=== PATIENT | male | born 1935 | race Caucasian/White ===

== ENCOUNTER → 2016-06-21 | Outpatient (CLI) | payer MEDICARE ==
[~2016-06-21] VITALS: Ht 177.8 cm; Wt 64.4 kg
[~2016-06-21] MED LIST: AMLO10TA2 PO; CHLO25TA PO; FLOM5CAP PO; LIDOCAINE 2% INJ 100 MG/5 ML SDV (FOR ANES.) As Ordered ONE; LISI10TA4 PO; METO100T PO; METO50TA2 PO; NS 1,000 ML IV SCH; PROPOFOL 200 MG/20 ML VIAL As Ordered ONE; WARF-23 PO; ePHEDrine SULFATE 25 MG/5 ML(5MG/ML) SYRINGE As Ordered ONE
--- NOTE | 2016-06-21 13:54 | ROOR ---
Patient Name: Greg Baum Procedure Date: 06/21/2016 12:58 PM Date of : 1935 Age: 80 Room: [facility] Gender: Male Note Status: Finalized Procedure: Colonoscopy Indications: High risk colon cancer surveillance: Personal history of colonic polyps Providers: Elliot Andrade Jr, MD Referring MD: Claudia Warner DO Requesting Provider: Medicines: Propofol per Anesthesia Complications: No immediate complications. Procedure: Pre-Anesthesia Assessment: - Prior to the procedure, a History and Physical was performed, and patient medications and allergies were reviewed. The patient is competent. The risks and benefits of the procedure and the sedation options and risks were discussed with the patient. All questions were answered and informed consent was obtained. Patient identification and proposed procedure were verified by the physician and the nurse in the pre-procedure area and in the procedure room. Mental Status Examination: alert and oriented. Airway Examination: normal oropharyngeal airway and neck mobility. Respiratory Examination: clear to auscultation. CV Examination: normal. ASA Grade Assessment: II - A patient with mild systemic disease. After reviewing the risks and benefits, the patient was deemed in satisfactory condition to undergo the procedure. The anesthesia plan was to use moderate sedation / analgesia (conscious sedation). Immediately prior to administration of medications, the patient was re-assessed for adequacy to receive sedatives. The heart rate, respiratory rate, oxygen saturations, blood pressure, adequacy of pulmonary ventilation, and response to care were monitored throughout the procedure. The physical status of the patient was re-assessed after the procedure. The Colonoscope was introduced through the anus and advanced to the cecum, identified by appendiceal orifice and ileocecal valve. The colonoscopy was performed with moderate difficulty due to ineffective sedation. The patient tolerated the procedure well. The quality of the bowel preparation was adequate and good. Findings: The perianal exam findings include non-thrombosed internal hemorrhoids, internal hemorrhoids that prolapse with straining, but spontaneously regress to the resting position (Grade II) and internal hemorrhoids that prolapse with straining, but require manual replacement into the anal canal (Grade III). Multiple small-mouthed diverticula were found in the sigmoid colon. Six sessile polyps were found in the rectum, recto-sigmoid colon, transverse colon and ascending colon. The polyps were small in size. Fulguration to ablate the lesion by hot biopsy forceps was successful. A medium polyp was found in the ascending colon. The polyp was removed with a hot snare. Resection was complete, but the polyp tissue was not retrieved. To close a defect after polypectomy, one hemostatic clip was successfully placed. There was no bleeding at the end of the procedure. Impression: - Non-thrombosed internal hemorrhoids, internal hemorrhoids that prolapse with straining, but spontaneously regress to the resting position (Grade II) and internal hemorrhoids that prolapse with straining, but require manual replacement into the anal canal (Grade III) found on perianal exam. - Diverticulosis in the sigmoid colon. - Six small polyps in the rectum, at the recto-sigmoid colon, in the transverse colon and in the ascending colon. Treated with hot biopsy forceps. - One medium polyp in the ascending colon, removed with a hot snare. Complete resection. Polyp tissue not retrieved. Clip was placed. Recommendation: - Discharge patient to home (ambulatory). - Repeat colonoscopy in 2 years for surveillance. Elliot Andrade MD Elliot Andrade Jr, MD 06/21/2016 1:54:11 PM This report has been signed electronically. Number of Addenda: 0 Note Initiated On: 06/21/2016 12:58 PM Estimated Blood Loss: Estimated blood loss: none.
[2016-06-21 14:22] VITALS: BP 124/75
== END | disposition home or self-care (01) ==
LOC: M OPP 11:37
PROVIDERS: ATTEND Surgery
DX: Z12.11 Encounter for screening for malignant neoplasm of colon (principal); D12.8 Benign neoplasm of rectum; D12.7 Benign neoplasm of rectosigmoid junction; D12.3 Benign neoplasm of transverse colon; D12.2 Benign neoplasm of ascending colon; K64.2 Third degree hemorrhoids; K64.1 Second degree hemorrhoids; K57.30 Diverticulosis of large intestine without perforation or abscess without bleeding; Z86.010 Personal history of colon polyps; I71.3 Abdominal aortic aneurysm, ruptured; I48.91 Unspecified atrial fibrillation; I10 Essential (primary) hypertension; M16.11 Unilateral primary osteoarthritis, right hip; I25.10 Atherosclerotic heart disease of native coronary artery without angina pectoris; Z86.73 Personal history of transient ischemic attack (TIA), and cerebral infarction without residual deficits; N40.0 Benign prostatic hyperplasia without lower urinary tract symptoms; Z95.5 Presence of coronary angioplasty implant and graft; F17.210 Nicotine dependence, cigarettes, uncomplicated; Z79.01 Long term (current) use of anticoagulants; Z79.899 Other long term (current) drug therapy

== ENCOUNTER 2018-02-10 16:32 | Inpatient (IN) | payer MEDICARE ==
[2018-02-10 17:16] LABS: APPEARANCE, URINE CLEAR (CLEAR); BACTERIA, URINE AUTO NEGATIVE (NEGATIVE); BILIRUBIN, URINE AUTO NEGATIVE (NEGATIVE); BLOOD, URINE BLOOD 2+ (NEGATIVE); COLOR, URINE YELLOW (YELLOW); GLUCOSE, URINE (UA) AUTO NEGATIVE (NEGATIVE); KETONE, URINE AUTO NEGATIVE (NEGATIVE); LEUKOCYTE ESTERASE, URINE AUTO NEGATIVE (NEGATIVE); MUCUS, URINE SMALL (NEGATIVE); NITRITE, URINE AUTO NEGATIVE (NEGATIVE); PROTEIN, URINE AUTO 1+ mg/dL (NEGATIVE); RBC, URINE AUTO 75 /HPF (0-3); SPECIFIC GRAVITY URINE AUTO 1.012 (1.002-1.035); SQUAMOUS EPITHELIAL CELL UR AU 0 /HPF (0-6); WBC, URINE AUTO 0 /HPF (0-3)
[2018-02-10 17:17] LABS: BASO # 0.1 10^3/uL (0.0-0.2); BASO % 0.7 % (0.0-1.0); EOS # 0.2 10^3/uL (0.0-0.50); HEMATOCRIT 42.5 % (42.0-52.0); HEMOGLOBIN 13.8 g/dl (13.5-17.5); IMMATURE GRANULOCYTE % 0.4 % (0-3.0); LYMPH # 1.1 10^3/uL (1.5-4.5); LYMPH % 16.7 % (24.0-44.0); MEAN CORPUSCULAR HEMOGLOBIN 33.4 pg (27.0-33.0); MEAN CORPUSCULAR HGB CONC 32.5 g/dl (32.0-36.5); MEAN CORPUSCULAR VOLUME 102.9 fl (80.0-96.0); MONO # 0.8 10^3/uL (0.0-0.8); MONO % 12.1 % (0.0-5.0); NEUTROPHILS # 4.5 10^3/uL (1.8-7.7); NEUTROPHILS % 67.1 % (36.0-66.0); PLATELET COUNT, AUTOMATED 108 10^3/uL (150-450); RED BLOOD COUNT 4.13 10^6/uL (4.30-6.10); RED CELL DISTRIBUTION WIDTH 13.2 % (11.5-14.5); WHITE BLOOD COUNT 6.8 10^3/uL (4.0-10.0)
[2018-02-10 17:20] LABS: INR 2.55; PARTIAL THROMBOPLASTIN TIME 36.9 SECONDS (25.4-37.6); PROTHROMBIN TIME 27.9 SECONDS (12.1-14.4)
[2018-02-10 17:28] LABS: ALBUMIN 3.8 GM/DL (3.2-5.2); ALBUMIN/GLOBULIN RATIO 1.19 (1.00-1.93); ALKALINE PHOSPHATASE 113 U/L (45-117); ALT/SGPT 30 U/L (12-78); ANION GAP 5 MEQ/L (8-16); AST/SGOT 31 U/L (7-37); BILIRUBIN,DIRECT 0.3 MG/DL (0.0-0.2); BILIRUBIN,TOTAL 0.8 MG/DL (0.2-1.0); BLOOD UREA NITROGEN 41 MG/DL (7-18); CALCIUM LEVEL 8.6 MG/DL (8.8-10.2); CARBON DIOXIDE LEVEL 27 MEQ/L (21-32); CHLORIDE LEVEL 111 MEQ/L (98-107); CREATININE FOR GFR 1.32 MG/DL (0.70-1.30); GLOMERULAR FILTRATION RATE 55.3 (>35); GLUCOSE, FASTING 88 MG/DL (70-100); POTASSIUM SERUM 4.3 MEQ/L (3.5-5.1); SODIUM LEVEL 143 MEQ/L (136-145)
[2018-02-10] MEDS ORDERED: ISOVUE-370 76% 100ML VIAL (Q9967) As Ordered (17:30)
[2018-02-10] MEDS: ADACEL/BOOSTRIX VACCINE (DIPHTH/PERTUSS/ACELL/TETANUS)0.5ML SYR (90715) IM (18:37)
[2018-02-10] MEDS: LIDOCAINE 1% MDV 20ML VIAL SC (18:39)
[2018-02-10] MEDS ORDERED: ONDANSETRON 4MG/2ML VIAL (J2405) IV (19:00)
[2018-02-10] MEDS ORDERED: LEVALBUTEROL 1.25 MG/0.5 ML CONCENTRATE NEB NEB (19:00)
[2018-02-10] MEDS: PERCOCET 5MG/325MG TAB PO (19:19)
[2018-02-10] MEDS ORDERED: FLUMAZENIL 0.5 MG/5 ML VIAL As Ordered (19:38)
[2018-02-10] MEDS ORDERED: MIDAZOLAM INJ 2 MG/2 ML VIAL (J2250) As Ordered ×3 (19:38→19:39)
[2018-02-10 19:49] LABS: ABG BASE EXCESS -4.1 (-2.0-2.0); ABG HCO3 19.6 MEQ/L (22.0-26.0); ABG O2 SATURATION 94.1 % (95.0-99.0); ABG PARTIAL PRESSURE CO2 31.8 mmHg (35.0-45.0); ABG TOTAL CO2 20.5 MEQ/L (23.0-31.0); ABG pH (ARTERIAL) 7.407 UNITS (7.350-7.450)
[2018-02-10] MEDS: KCL 20MEQ IN D5/NS 1000ML 1,000 ML IV (20:18)
[2018-02-10] MEDS: HEPARIN SOD (PORCINE) 5000 UNITS/ML VIAL SQ (20:52)
[2018-02-10] MEDS: OCUVITE 1 TAB PO (21:00)
[2018-02-10] MEDS: LEVALBUTEROL 1.25 MG/0.5 ML CONCENTRATE NEB NEB (21:01)
[2018-02-10] MEDS: PHYTONADIONE 10MG/ML INJECTION (J3430) SC (21:27)
[2018-02-10] MEDS: DOCUSATE SODIUM 100 MG CAP PO (21:27)
[2018-02-10] MEDS: TAMSULOSIN 0.4 MG CAP PO (21:27)
[2018-02-11] MEDS: PERCOCET 5MG/325MG TAB PO ×2 (00:23→09:54)
[2018-02-11] MEDS: LEVALBUTEROL 1.25 MG/0.5 ML CONCENTRATE NEB NEB ×4 (02:00→19:58)
[2018-02-11 05:23] LABS: BASO % 0.4 % (0.0-1.0); EOS # 0.1 10^3/uL (0.0-0.50); EOS % 1.5 % (0.0-3.0); HEMATOCRIT 37.1 % (42.0-52.0); IMMATURE GRANULOCYTE % 0.4 % (0-3.0); LYMPH # 1.1 10^3/uL (1.5-4.5); MEAN CORPUSCULAR HGB CONC 31.5 g/dl (32.0-36.5); MEAN CORPUSCULAR VOLUME 104.5 fl (80.0-96.0); MONO % 14.6 % (0.0-5.0); NEUTROPHILS # 4.8 10^3/uL (1.8-7.7); NEUTROPHILS % 68.1 % (36.0-66.0); RED BLOOD COUNT 3.55 10^6/uL (4.30-6.10); RED CELL DISTRIBUTION WIDTH 13.2 % (11.5-14.5); WHITE BLOOD COUNT 7.1 10^3/uL (4.0-10.0)
[2018-02-11 05:33] LABS: PROTHROMBIN TIME 25.8 SECONDS (12.1-14.4)
[2018-02-11 05:43] LABS: ANION GAP 4 MEQ/L (8-16); BLOOD UREA NITROGEN 38 MG/DL (7-18); CALCIUM LEVEL 8.1 MG/DL (8.8-10.2); CARBON DIOXIDE LEVEL 27 MEQ/L (21-32); CHLORIDE LEVEL 113 MEQ/L (98-107); CREATININE FOR GFR 1.25 MG/DL (0.70-1.30); GLOMERULAR FILTRATION RATE 58.9 (>35); GLUCOSE, FASTING 121 MG/DL (70-100); POTASSIUM SERUM 4.6 MEQ/L (3.5-5.1); SODIUM LEVEL 144 MEQ/L (136-145)
[2018-02-11 05:56] LABS: HEMOGLOBIN 11.7 g/dl (13.5-17.5); IMMATURE PLATELET FRACTION % 4.2 % (0.0-10.9); PLATELET COUNT, AUTOMATED 84 10^3/uL (150-450)
[2018-02-11 05:59] LABS: ABG BASE EXCESS -2.6 (-2.0-2.0); ABG HCO3 21.1 MEQ/L (22.0-26.0); ABG O2 SATURATION 89.5 % (95.0-99.0); ABG PARTIAL PRESSURE CO2 32.9 mmHg (35.0-45.0); ABG PARTIAL PRESSURE O2 54.7 mmHg (75.0-100.0); ABG STANDARD HCO3 22.2 MEQ/L (22.0-26.0); ABG TOTAL CO2 22.1 MEQ/L (23.0-31.0); ABG pH (ARTERIAL) 7.424 UNITS (7.350-7.450)
[2018-02-11] MEDS: PANTOPRAZOLE 40MG TAB (PROTONIX) PO (09:00)
[2018-02-11] MEDS: HEPARIN SOD (PORCINE) 5000 UNITS/ML VIAL SQ ×2 (09:00→20:40)
[2018-02-11] MEDS: OCUVITE 1 TAB PO ×2 (09:07→20:39)
[2018-02-11] MEDS: DOCUSATE SODIUM 100 MG CAP PO ×2 (09:07→20:39)
[2018-02-11] MEDS: amLODIPine 10 MG TAB PO (09:08)
[2018-02-11] MEDS: LISINOPRIL 10 MG TAB PO (09:08)
[2018-02-11] MEDS: MOM 30ML SUSPENSION UDC PO (09:08)
[2018-02-11] MEDS: KCL 20MEQ IN D5/NS 1000ML 1,000 ML IV (09:14)
[2018-02-11] MEDS: METOPROLOL TARTRATE 100 MG TAB PO (09:15)
[2018-02-11 09:16] LABS: GOLD SPEC TUBE RECIEVED
[2018-02-11] MEDS: TAMSULOSIN 0.4 MG CAP PO (20:39)
[2018-02-11] MEDS: NORCO, ANEXSIA 5/325MG TABLET (HYDROcodone/ACETAMINOPHEN) PO (20:39)
[2018-02-12] MEDS: NORCO, ANEXSIA 5/325MG TABLET (HYDROcodone/ACETAMINOPHEN) PO ×3 (00:51→19:40)
[2018-02-12] MEDS: LEVALBUTEROL 1.25 MG/0.5 ML CONCENTRATE NEB NEB ×4 (01:43→19:49)
[2018-02-12 05:04] LABS: BASO % 0.5 % (0.0-1.0); EOS # 0.1 10^3/uL (0.0-0.50); EOS % 0.6 % (0.0-3.0); HEMATOCRIT 36.4 % (42.0-52.0); HEMOGLOBIN 11.8 g/dl (13.5-17.5); IMMATURE GRANULOCYTE % 0.2 % (0-3.0); LYMPH # 0.9 10^3/uL (1.5-4.5); LYMPH % 10.5 % (24.0-44.0); MEAN CORPUSCULAR HEMOGLOBIN 32.8 pg (27.0-33.0); MEAN CORPUSCULAR HGB CONC 32.4 g/dl (32.0-36.5); MEAN CORPUSCULAR VOLUME 101.1 fl (80.0-96.0); MONO # 1.1 10^3/uL (0.0-0.8); MONO % 13.8 % (0.0-5.0); NEUTROPHILS # 6.1 10^3/uL (1.8-7.7); NEUTROPHILS % 74.4 % (36.0-66.0); RED CELL DISTRIBUTION WIDTH 13.1 % (11.5-14.5); WHITE BLOOD COUNT 8.2 10^3/uL (4.0-10.0)
[2018-02-12 05:06] LABS: PLATELET COUNT, AUTOMATED 83 10^3/uL (150-450)
[2018-02-12 05:27] LABS: INR 1.38; PROTHROMBIN TIME 17.1 SECONDS (12.1-14.4)
[2018-02-12 05:34] LABS: ANION GAP 4 MEQ/L (8-16); BLOOD UREA NITROGEN 31 MG/DL (7-18); CALCIUM LEVEL 8.4 MG/DL (8.8-10.2); CARBON DIOXIDE LEVEL 27 MEQ/L (21-32); CHLORIDE LEVEL 110 MEQ/L (98-107); CREATININE FOR GFR 1.05 MG/DL (0.70-1.30); GLOMERULAR FILTRATION RATE > 60.0 (>35); GLUCOSE, FASTING 106 MG/DL (70-100); POTASSIUM SERUM 4.2 MEQ/L (3.5-5.1); SODIUM LEVEL 141 MEQ/L (136-145)
[2018-02-12 06:14] LABS: GOLD SPEC TUBE RECIEVED
[2018-02-12] MEDS: OCUVITE 1 TAB PO ×2 (09:18→19:37)
[2018-02-12] MEDS: DOCUSATE SODIUM 100 MG CAP PO ×2 (09:18→19:40)
[2018-02-12] MEDS: MOM 30ML SUSPENSION UDC PO (09:18)
[2018-02-12] MEDS: PANTOPRAZOLE 40MG TAB (PROTONIX) PO (09:19)
[2018-02-12] MEDS: METOPROLOL TARTRATE 100 MG TAB PO (09:19)
[2018-02-12] MEDS: LISINOPRIL 10 MG TAB PO (09:20)
[2018-02-12] MEDS: HEPARIN SOD (PORCINE) 5000 UNITS/ML VIAL SQ ×2 (09:20→19:37)
[2018-02-12] MEDS: amLODIPine 5 MG TAB PO (09:20)
[2018-02-12] MEDS: BISACODYL 10 MG SUPP PR (16:15)
[2018-02-12] MEDS: WARFARIN SOD 5 MG TAB PO (16:15)
[2018-02-12] MEDS: TAMSULOSIN 0.4 MG CAP PO (19:40)
[2018-02-12] MEDS ORDERED: MORPHINE 4 MG/ML 1ML VIAL/SYRINGE (J2270) IV (21:00)
[2018-02-12] MEDS: PERCOCET 5MG/325MG TAB PO (21:08)
[2018-02-13] MEDS: PERCOCET 5MG/325MG TAB PO ×3 (01:16→14:55)
[2018-02-13] MEDS: LEVALBUTEROL 1.25 MG/0.5 ML CONCENTRATE NEB NEB ×4 (01:44→19:55)
[2018-02-13 07:19] LABS: BASO % 0.3 % (0.0-1.0); EOS # 0.1 10^3/uL (0.0-0.50); EOS % 2.1 % (0.0-3.0); HEMATOCRIT 38.4 % (42.0-52.0); HEMOGLOBIN 12.5 g/dl (13.5-17.5); IMMATURE GRANULOCYTE % 0.3 % (0-3.0); LYMPH # 0.8 10^3/uL (1.5-4.5); LYMPH % 12.2 % (24.0-44.0); MEAN CORPUSCULAR HEMOGLOBIN 33.5 pg (27.0-33.0); MEAN CORPUSCULAR HGB CONC 32.6 g/dl (32.0-36.5); MEAN CORPUSCULAR VOLUME 102.9 fl (80.0-96.0); MONO % 14.7 % (0.0-5.0); NEUTROPHILS # 4.8 10^3/uL (1.8-7.7); NEUTROPHILS % 70.4 % (36.0-66.0); RED BLOOD COUNT 3.73 10^6/uL (4.30-6.10); RED CELL DISTRIBUTION WIDTH 13.1 % (11.5-14.5); WHITE BLOOD COUNT 6.8 10^3/uL (4.0-10.0)
[2018-02-13 07:20] LABS: PLATELET COUNT, AUTOMATED 85 10^3/uL (150-450)
[2018-02-13 07:21] LABS: IMMATURE PLATELET FRACTION % 5.2 % (0.0-10.9)
[2018-02-13 07:29] LABS: INR 1.19; PROTHROMBIN TIME 15.3 SECONDS (12.1-14.4)
[2018-02-13 07:38] LABS: ANION GAP 7 MEQ/L (8-16); BLOOD UREA NITROGEN 30 MG/DL (7-18); CALCIUM LEVEL 8.6 MG/DL (8.8-10.2); CARBON DIOXIDE LEVEL 26 MEQ/L (21-32); CHLORIDE LEVEL 107 MEQ/L (98-107); GLOMERULAR FILTRATION RATE > 60.0 (>35); GLUCOSE, FASTING 94 MG/DL (70-100); SODIUM LEVEL 140 MEQ/L (136-145)
[2018-02-13] MEDS: MOM 30ML SUSPENSION UDC PO ×2 (09:00→09:42)
[2018-02-13] MEDS: DOCUSATE SODIUM 100 MG CAP PO ×2 (09:35→20:32)
[2018-02-13] MEDS: OCUVITE 1 TAB PO ×2 (09:36→20:32)
[2018-02-13] MEDS: PANTOPRAZOLE 40MG TAB (PROTONIX) PO (09:38)
[2018-02-13] MEDS: LISINOPRIL 10 MG TAB PO (09:41)
[2018-02-13] MEDS: amLODIPine 5 MG TAB PO (09:42)
[2018-02-13] MEDS: METOPROLOL TARTRATE 100 MG TAB PO (09:42)
[2018-02-13] MEDS: HEPARIN SOD (PORCINE) 5000 UNITS/ML VIAL SQ ×2 (09:43→20:32)
[2018-02-13] MEDS: TAMSULOSIN 0.4 MG CAP PO (20:32)
[2018-02-14] MEDS: LEVALBUTEROL 1.25 MG/0.5 ML CONCENTRATE NEB NEB ×4 (02:00→21:07)
[2018-02-14 06:26] LABS: BASO % 0.4 % (0.0-1.0); EOS # 0.2 10^3/uL (0.0-0.50); EOS % 2.4 % (0.0-3.0); HEMATOCRIT 35.2 % (42.0-52.0); HEMOGLOBIN 11.6 g/dl (13.5-17.5); IMMATURE GRANULOCYTE % 0.3 % (0-3.0); LYMPH # 0.8 10^3/uL (1.5-4.5); LYMPH % 10.9 % (24.0-44.0); MEAN CORPUSCULAR HEMOGLOBIN 32.9 pg (27.0-33.0); MEAN CORPUSCULAR VOLUME 99.7 fl (80.0-96.0); MONO % 14.9 % (0.0-5.0); NEUTROPHILS % 71.1 % (36.0-66.0); PLATELET COUNT, AUTOMATED 101 10^3/uL (150-450); RED BLOOD COUNT 3.53 10^6/uL (4.30-6.10); RED CELL DISTRIBUTION WIDTH 13.1 % (11.5-14.5)
[2018-02-14 06:47] LABS: INR 1.11; PROTHROMBIN TIME 14.5 SECONDS (12.1-14.4)
[2018-02-14 06:55] LABS: ANION GAP 8 MEQ/L (8-16); BLOOD UREA NITROGEN 30 MG/DL (7-18); CALCIUM LEVEL 8.1 MG/DL (8.8-10.2); CARBON DIOXIDE LEVEL 26 MEQ/L (21-32); CHLORIDE LEVEL 107 MEQ/L (98-107); CREATININE FOR GFR 1.16 MG/DL (0.70-1.30); GLOMERULAR FILTRATION RATE > 60.0 (>35); GLUCOSE, FASTING 96 MG/DL (70-100); POTASSIUM SERUM 3.6 MEQ/L (3.5-5.1); SODIUM LEVEL 141 MEQ/L (136-145)
[2018-02-14] MEDS: MOM 30ML SUSPENSION UDC PO (09:38)
[2018-02-14] MEDS: HEPARIN SOD (PORCINE) 5000 UNITS/ML VIAL SQ ×2 (09:39→20:58)
[2018-02-14] MEDS: PANTOPRAZOLE 40MG TAB (PROTONIX) PO (09:39)
[2018-02-14] MEDS: OCUVITE 1 TAB PO ×2 (09:39→20:57)
[2018-02-14] MEDS: LISINOPRIL 10 MG TAB PO (09:39)
[2018-02-14] MEDS: DOCUSATE SODIUM 100 MG CAP PO ×2 (09:40→20:58)
[2018-02-14] MEDS: amLODIPine 5 MG TAB PO (09:44)
[2018-02-14] MEDS: METOPROLOL TARTRATE 100 MG TAB PO (10:10)
[2018-02-14] MEDS: NICOTINE 21MG/24HR 1 EA TRANSDERMAL TD (17:39)
[2018-02-14] MEDS: WARFARIN SOD 5 MG TAB PO (17:42)
[2018-02-14] MEDS: TAMSULOSIN 0.4 MG CAP PO (20:57)
[2018-02-14] MEDS: ACETAMINOPHEN TAB 650MG DOSE (2X325MG) PO (20:58)
[2018-02-15] MEDS: LEVALBUTEROL 1.25 MG/0.5 ML CONCENTRATE NEB NEB ×2 (01:31→08:00)
[2018-02-15 06:19] LABS: BASO % 0.3 % (0.0-1.0); EOS # 0.3 10^3/uL (0.0-0.50); EOS % 5.2 % (0.0-3.0); HEMATOCRIT 36.6 % (42.0-52.0); HEMOGLOBIN 11.9 g/dl (13.5-17.5); IMMATURE GRANULOCYTE % 0.3 % (0-3.0); LYMPH # 0.8 10^3/uL (1.5-4.5); MEAN CORPUSCULAR HGB CONC 32.5 g/dl (32.0-36.5); MEAN CORPUSCULAR VOLUME 101.4 fl (80.0-96.0); MONO % 17.6 % (0.0-5.0); NEUTROPHILS # 3.6 10^3/uL (1.8-7.7); NEUTROPHILS % 62.6 % (36.0-66.0); PLATELET COUNT, AUTOMATED 101 10^3/uL (150-450); RED BLOOD COUNT 3.61 10^6/uL (4.30-6.10); RED CELL DISTRIBUTION WIDTH 13.1 % (11.5-14.5); WHITE BLOOD COUNT 5.8 10^3/uL (4.0-10.0)
[2018-02-15 06:34] LABS: INR 1.24; PROTHROMBIN TIME 15.8 SECONDS (12.1-14.4)
[2018-02-15 06:42] LABS: ANION GAP 7 MEQ/L (8-16); BLOOD UREA NITROGEN 28 MG/DL (7-18); CALCIUM LEVEL 8.5 MG/DL (8.8-10.2); CARBON DIOXIDE LEVEL 28 MEQ/L (21-32); CHLORIDE LEVEL 109 MEQ/L (98-107); CREATININE FOR GFR 1.11 MG/DL (0.70-1.30); GLOMERULAR FILTRATION RATE > 60.0 (>35); GLUCOSE, FASTING 96 MG/DL (70-100); POTASSIUM SERUM 3.7 MEQ/L (3.5-5.1); SODIUM LEVEL 144 MEQ/L (136-145)
[2018-02-15] MEDS: ACETAMINOPHEN TAB 650MG DOSE (2X325MG) PO (07:45)
[2018-02-15] MEDS: amLODIPine 5 MG TAB PO (07:45)
[2018-02-15] MEDS: METOPROLOL TARTRATE 100 MG TAB PO (07:46)
[2018-02-15] MEDS: DOCUSATE SODIUM 100 MG CAP PO (07:46)
[2018-02-15] MEDS: PANTOPRAZOLE 40MG TAB (PROTONIX) PO (07:46)
[2018-02-15] MEDS: LISINOPRIL 10 MG TAB PO (07:46)
[2018-02-15] MEDS: HEPARIN SOD (PORCINE) 5000 UNITS/ML VIAL SQ (07:47)
[2018-02-15] MEDS: OCUVITE 1 TAB PO (07:47)
[2018-02-15] MEDS: MOM 30ML SUSPENSION UDC PO (07:47)
== END 2018-02-15 14:10 | disposition home or self-care (01) | DRG 965 ==
LOC: M MSPAV 02-12 20:15 → M ED 16:32 → M ED INP 18:52 → M ICU 22:23
DX: S27.0XXA Traumatic pneumothorax, initial encounter (principal); S37.012A Minor contusion of left kidney, initial encounter; S27.321A Contusion of lung, unilateral, initial encounter; R31.9 Hematuria, unspecified; S51.012A Laceration without foreign body of left elbow, initial encounter; S80.12XA Contusion of left lower leg, initial encounter; I73.9 Peripheral vascular disease, unspecified; J98.2 Interstitial emphysema; I48.91 Unspecified atrial fibrillation; F17.210 Nicotine dependence, cigarettes, uncomplicated; I10 Essential (primary) hypertension; N40.0 Benign prostatic hyperplasia without lower urinary tract symptoms; V47.0XXA Car driver injured in collision with fixed or stationary object in nontraffic accident, initial encounter; Y92.828 Other wilderness area as the place of occurrence of the external cause; Y93.89 Activity, other specified; Z86.73 Personal history of transient ischemic attack (TIA), and cerebral infarction without residual deficits; Z95.9 Presence of cardiac and vascular implant and graft, unspecified; Z79.01 Long term (current) use of anticoagulants; Z79.899 Other long term (current) drug therapy

== ENCOUNTER 2018-07-24 07:34 | Day surgery (SDC) | payer MEDICARE ==
[~2018-07-24] VITALS: Ht 182.9 cm; Wt 62.3 kg
[~2018-07-24 07:34] MED LIST changes: -AMLO10TA2 PO; +AMLO10TA5 PO; +CALC600T60 PO; +FLOM0.4C39 PO; -FLOM5CAP PO; -METO100T PO; +METO100T5 PO; -METO50TA2 PO; +METO50TA7 PO; -NS 1,000 ML IV SCH; +OXYC1TAB PO; +PRESCAP PO; +RED600TA PO; +WARF-18 PO; -ePHEDrine SULFATE 25 MG/5 ML(5MG/ML) SYRINGE As Ordered ONE
--- NOTE | 2018-07-24 08:56 | ROOR ---
Patient Name: Greg Baum Procedure Date: 07/24/2018 8:27 AM Date of : 1935 Age: 82 Room: [facility] Gender: Male Note Status: Finalized Procedure: Colonoscopy Indications: High risk colon cancer surveillance: Personal history of colonic polyps Providers: Elliot Andrade Jr, MD Referring MD: Claudia Warner DO Requesting Provider: Medicines: Propofol per Anesthesia Complications: No immediate complications. Procedure: Pre-Anesthesia Assessment: - Prior to the procedure, a History and Physical was performed, and patient medications and allergies were reviewed. The patient is competent. The risks and benefits of the procedure and the sedation options and risks were discussed with the patient. All questions were answered and informed consent was obtained. Patient identification and proposed procedure were verified by the physician and the nurse in the pre-procedure area and in the procedure room. Mental Status Examination: alert and oriented. Airway Examination: normal oropharyngeal airway and neck mobility. Respiratory Examination: clear to auscultation. CV Examination: normal. ASA Grade Assessment: II - A patient with mild systemic disease. After reviewing the risks and benefits, the patient was deemed in satisfactory condition to undergo the procedure. The anesthesia plan was to use moderate sedation / analgesia (conscious sedation). Immediately prior to administration of medications, the patient was re-assessed for adequacy to receive sedatives. The heart rate, respiratory rate, oxygen saturations, blood pressure, adequacy of pulmonary ventilation, and response to care were monitored throughout the procedure. The physical status of the patient was re-assessed after the procedure. The Colonoscope was introduced through the anus and advanced to the cecum, identified by appendiceal orifice and ileocecal valve. The colonoscopy was performed without difficulty. The patient tolerated the procedure well. The quality of the bowel preparation was adequate. Findings: Five polyps were found in the descending colon, transverse colon and ascending colon. The polyps were small in size. These polyps were removed with a cold snare. Resection was complete, but the polyp tissue was only partially retrieved. The rectum, recto-sigmoid colon, sigmoid colon, cecum, appendiceal orifice and ileocecal valve appeared normal. Impression: - Five small polyps in the descending colon, in the transverse colon and in the ascending colon, removed with a cold snare. Complete resection. Partial retrieval. - The rectum, recto-sigmoid colon, sigmoid colon, cecum, appendiceal orifice and ileocecal valve are normal. Recommendation: - Discharge patient to home (ambulatory). - Repeat colonoscopy in 3 years for surveillance. Elliot Andrade MD Elliot Andrade Jr, MD 07/24/2018 8:56:03 AM Electronically signed by Elliot Andrade Jr, MD Number of Addenda: 0 Note Initiated On: 07/24/2018 8:27 AM Estimated Blood Loss: Estimated blood loss: none.
[2018-07-24 09:21] VITALS: BP 103/68
[2018-07-24] MEDS ORDERED: PROPOFOL 200 MG/20 ML VIAL As Ordered ONE (09:23)
== END 2018-07-24 09:35 | disposition home or self-care (01) ==
LOC: M OPP 07:34
PROVIDERS: ATTEND Surgery
DX: D12.2 Benign neoplasm of ascending colon (principal); D12.3 Benign neoplasm of transverse colon; D12.4 Benign neoplasm of descending colon; Z86.010 Personal history of colon polyps

== ENCOUNTER → 2018-12-03 | Outpatient (REF) | payer MEDICARE ==
[~2018-12-03] MED LIST changes: -LIDOCAINE 2% INJ 100 MG/5 ML SDV (FOR ANES.) As Ordered ONE; -PROPOFOL 200 MG/20 ML VIAL As Ordered ONE
[2018-12-03 17:10] LABS: BASO # 0.1 10^3/uL (0.0-0.2); BASO % 1.1 % (0.0-1.0); EOS # 0.2 10^3/uL (0.0-0.50); EOS % 2.8 % (0.0-3.0); HEMATOCRIT 44.3 % (42.0-52.0); HEMOGLOBIN 14.5 g/dl (13.5-17.5); MEAN CORPUSCULAR HEMOGLOBIN 33.3 pg (27.0-33.0); MEAN CORPUSCULAR HGB CONC 32.7 g/dl (32.0-36.5); MEAN CORPUSCULAR VOLUME 101.6 fl (80.0-96.0); MONO # 0.6 10^3/uL (0.0-0.8); NEUTROPHILS # 3.5 10^3/uL (1.8-7.7); NEUTROPHILS % 65.7 % (36.0-66.0); PLATELET COUNT, AUTOMATED 118 10^3/uL (150-450); RED BLOOD COUNT 4.36 10^6/uL (4.30-6.10); WHITE BLOOD COUNT 5.3 10^3/uL (4.0-10.0)
[2018-12-03 17:13] LABS: ALBUMIN 4.2 GM/DL (3.2-5.2); BILIRUBIN,TOTAL 1.2 MG/DL (0.2-1.0); CALCIUM LEVEL 8.9 MG/DL (8.8-10.2); CHOLESTEROL RISK RATIO 3.254 (<5); CREATININE FOR GFR 1.67 MG/DL (0.70-1.30); POTASSIUM SERUM 4.6 MEQ/L (3.5-5.1); TOTAL PROTEIN 7.4 GM/DL (6.4-8.2)
== END ==
LOC: M LAB REF 16:31
PROVIDERS: ATTEND Family Medicine
DX: Z00.00 Encounter for general adult medical examination without abnormal findings (principal); I48.91 Unspecified atrial fibrillation; Z79.01 Long term (current) use of anticoagulants; E78.49 Other hyperlipidemia; C61 Malignant neoplasm of prostate

== ENCOUNTER → 2020-12-23 | Outpatient (CLI) | payer MEDICARE ==
[~2020-12-23] MED LIST changes: -AMLO10TA5 PO; +AMLO1TAB25 PO; +LISI10TA22 PO; -LISI10TA4 PO
--- NOTE | 2020-12-24 17:04 | ECHO ---
ECHOCARDIOGRAM DATE OF PROCEDURE: 12/23/2020 Age: 85 Gender: Male Height: 183 cm Weight: 68 kg REFERRING PHYSICIAN: Claudia Warner M.D. PATIENT LOCATION: Outpatient. REASON FOR THE TESTING: Edema. MEASUREMENTS: 2D Measurements: IVS 0.8 cm LV 3.9 cm LVPW 0.8 cm LA 5.3 cm Aortic root 3.6 cm IVC 2.7 cm Doppler Measurements: Maximum tricuspid valve velocity 3.1 m/sec 2D COMMENTS: 1. Normal left ventricular size and wall thickness with an estimated left ventricular ejection fraction (LVEF) of 55-60%. 2. Moderately enlarged left atrium. The right atrium appeared to be enlarged, as well as the right ventricle. 3. The atrial septum appeared to be normal without evidence of defect or shunt. 4. Normal aortic root. 5. A small pericardial effusion was noted. No evidence of cardiac tamponade. 6. Normal aortic valve. Mildly calcified mitral annulus with normal anterior mitral valve leaflet motion. Normal tricuspid valve and pulmonic valve. The proximal pulmonary artery branches were not well visualized. 7. The inferior vena cava was dilated. Central venous pressure might be elevated. DOPPLER: It detects mild aortic regurgitation, mild mitral regurgitation, severe tricuspid regurgitation and trace pulmonic regurgitation. The calculated pulmonary artery systolic pressure varies between 40-50 mmHg, but may be higher. Assessment of the left ventricular diastolic function was limited in view of the underlying atrial fibrillation. IMPRESSION: 1. Low normal global left ventricular systolic function. Assessment of the left ventricular diastolic function was limited in view of the underlying atrial fibrillation. 2. Mild aortic regurgitation. 3. Mitral annulus calcification with a moderately enlarged left atrium and mild mitral regurgitation. 4. Severe tricuspid regurgitation with dilated right heart chambers and moderate pulmonary hypertension. 5. A small pericardial effusion was noted. No evidence of cardiac tamponade. 6. There were features of elevated central venous pressure. The inferior vena cava was dilated.
== END ==
LOC: M CARPUL 10:32
PROVIDERS: ATTEND Family Medicine
DX: I35.1 Nonrheumatic aortic (valve) insufficiency (principal); I36.1 Nonrheumatic tricuspid (valve) insufficiency; I31.3 Pericardial effusion (noninflammatory); R60.9 Edema, unspecified; R06.09 Other forms of dyspnea; R77.8 Other specified abnormalities of plasma proteins